=== PATIENT | female | born 1985 | race Caucasian/White ===

== ENCOUNTER 2016-12-15 23:49 | Emergency (ER) | payer SELFPAY ==
[~2016-12-15] VITALS: Ht 162.6 cm; Wt 86.2 kg
[~2016-12-15 23:49] MED LIST: CELEBREX200 MG PO; FLEXERIL10 MG PO; GLUCOPHAGE500 MG PO; PROZAC20 MG PO; ZYRTEC10 MG PO
[2016-12-16] MEDS ORDERED: SINGULAIR10 MG PO (00:16)
[2016-12-16] MEDS ORDERED: EPIPEN0.3 MG/0.3 IM (00:17)
[2016-12-16] MEDS ORDERED: PROVENTIL2.5 MG/0.5 INH (00:18)
[2016-12-16] MEDS ORDERED: PROAIR HFA8.5 GM INH (00:19)
[2016-12-16] MEDS ORDERED: MIRENA1 EACH VAG (00:20)
[2016-12-16] MEDS ORDERED: NASACORT16.9 ML NASBOTH (00:22)
== END 2016-12-16 01:23 | disposition short-term general hospital (02) ==
LOC: ER 23:49
PROC: 2W3CX1Z Immobilization of Right Lower Arm using Splint (ICD-10-PCS; principal; 2016-12-15)
DX: S63.501A Unspecified sprain of right wrist, initial encounter (principal); Z88.0 Allergy status to penicillin; Z88.1 Allergy status to other antibiotic agents; Z88.6 Allergy status to analgesic agent; W22.8XXA Striking against or struck by other objects, initial encounter